=== PATIENT | female | born 1985 ===

== ENCOUNTER 2016-11-13 02:56 | Emergency (ER) | payer SELFPAY ==
[2016-11-13 03:30] VITALS: BP 117/92
[2016-11-13 04:15] LABS: Eosinophils % (Auto) 2.9 % (0.0-4.3); Hematocrit 32.1 % (30.3-42.9); Hemoglobin 9.8 gm/dl (10.1-14.3); Mean Corpuscular HGB Conc 30 % (30-34); Mean Corpuscular Hemoglobin 21 pg (28-32); Mean Corpuscular Volume 68 fl (79-97); Platelet Count 434 K/mm3 (140-440); Red Blood Count 4.72 M/mm3 (3.65-5.03); Red Cell Distribution Width 17.2 % (13.2-15.2); White Blood Count 8.2 K/mm3 (4.5-11.0)
[2016-11-13 04:20] LABS: Anion Gap 17 mmol/L; Blood Urea Nitrogen 12 mg/dL (7-17); Calcium 9.4 mg/dL (8.4-10.2); Carbon Dioxide 23 mmol/L (22-30); Chloride 102.6 mmol/L (98-107); Glucose 101 mg/dL (65-100); Potassium 3.8 mmol/L (3.6-5.0); Sodium 139 mmol/L (137-145)
== END 2016-11-13 03:45 | disposition left against medical advice (07) ==
LOC: ED 02:56
DX: R55 Syncope and collapse (principal); R42 Dizziness and giddiness; D64.9 Anemia, unspecified; Z53.21 Procedure and treatment not carried out due to patient leaving prior to being seen by health care provider
CPT/HCPCS: 36415; 80048; 81025; 84484; 85025; 93005; 93010

== ENCOUNTER 2019-05-22 01:45 | Emergency (ER) | payer OTHER, SELFPAY ==
[2019-05-22 03:57] LABS: Basophils # (Auto) 0.1 K/mm3 (0.0-0.1); Basophils % (Auto) 1.7 % (0.0-1.8); Eosinophils # (Auto) 0.2 K/mm3 (0.0-0.4); Eosinophils % (Auto) 4.3 % (0.0-4.3); Lymphocytes # (Auto) 1.1 K/mm3 (1.2-5.4); Lymphocytes % (Auto) 21.6 % (13.4-35.0); Mean Corpuscular HGB Conc 30 % (30-34); Monocytes # (Auto) 0.4 K/mm3 (0.0-0.8); Platelet Count 623 K/mm3 (140-440); Red Blood Count 4.51 M/mm3 (3.65-5.03); Red Cell Distribution Width 18.8 % (13.2-15.2)
--- NOTE | 2019-05-22 04:01 | Emergency Department Report ---
HPI - General Chief Complaint: Psych Time Seen by Provider: 05/22/19 03:47 - HPI HPI: [facility] The patient is a 34-year-old female presenting with chief complaint of suicidal ideation. The patient states she's been unable to focus on her job after ge tting demoted. The patient states she has multiple social stressors over the past 2 weeks she's felt suicidal intermittently. Today the patient states she was going to buy a knife but when she called [facility] they told her to come to the emergency department. The patient denies any active attempt at harming herself Location: [See above] Duration: [See above] Quality: [See above] Severity: [See above] Timing: [See above] Context: [See above] Modifying factors: [See above] Associated signs and symptoms: [see above] ED Past Medical Hx - Past Medical History Previous Medical History?: Yes Additional medical history: anemia; fibroids - Surgical History Past Surgical History?: Yes Additional Surgical History: cyst and pylops removed from back - Family History Family history: no significant - Social History Smoking Status: Current Every Day Smoker (1/2 pack per day) Substance Use Type: None (denies illicit drug use) ED Review of Systems ROS: Stated complaint: MH EVAL/NERVOUS BREAKDOWN Other details as noted in HPI Constitutional: no symptoms reported Eyes: denies: eye pain ENT: denies: throat pain Respiratory: no symptoms reported Cardiovascular: denies: chest pain Endocrine: no symptoms reported Gastrointestinal: denies: abdominal pain Genitourinary: denies: dysuria Musculoskeletal: denies: back pain Neurological: denies: headache Psychiatric: suicidal thoughts Physical Exam - Physical Exam Vital Signs: Vital Signs 05/22/19 02:12 Temperature 97.9 F Pulse Rate 76 Respiratory 18 Rate Blood Pressure 131/89 [Left] O2 Sat by Pulse 100 Oximetry Physical Exam: GENERAL: The patient is well-developed well-nourished female sitting in chair not appearing to be in acute distress HEENT: Normocephalic. Atraumatic. Extraocular motions are intact. Patient has moist mucous membranes. NECK: Supple. Trachea midline CHEST/LUNGS: Clear to auscultation. There is no respiratory distress noted. HEART/CARDIOVASCULAR: Regular. There is no tachycardia. There is no gallop rub or murmur. ABDOMEN: Abdomen is soft, nontender. Patient has normal bowel sounds. There is no abdominal distention. SKIN: There is no rash. There is no edema. There is no diaphoresis. NEURO: The patient is awake, alert, and oriented. The patient is cooperative. The patient has normal speech MUSCULOSKELETAL:There is no evidence of acute injury. ED Course Vital Signs 05/22/19 02:12 Temperature 97.9 F Pulse Rate 76 Respiratory 18 Rate Blood Pressure 131/89 [Left] O2 Sat by Pulse 100 Oximetry ED Medical Decision Making - Lab Data Result diagrams: 05/22/19 03:34 05/22/19 03:34 Laboratory Tests 05/22/19 05/22/19 05/22/19 03:34 03:34 03:34 WBC RBC Hgb Hct MCV MCH MCHC RDW Plt Count Lymph % (Auto) [place] % (Auto) Eos % (Auto) Baso % (Auto) Lymph # [place] # Eos # Baso # Seg Neutrophils % Seg Neutrophils # Sodium 137 Potassium 3.8 Chloride 100.6 Carbon Dioxide 25 Anion Gap 15 BUN 10 Creatinine 0.6 L Estimated GFR > 60 BUN/Creatinine Ratio 17 Glucose 96 Calcium 9.4 Salicylates < 0.3 L Acetaminophen < 5.0 L Plasma/Serum Alcohol 05/22/19 05/22/19 03:34 03:34 WBC 5.0 RBC 4.51 Hgb 8.6 L Hct 29.3 L MCV 65 L MCH 19 L MCHC 30 RDW 18.8 H Plt Count 623 H Lymph % (Auto) 21.6 [place] % (Auto) 9.0 H Eos % (Auto) 4.3 Baso % (Auto) 1.7 Lymph # 1.1 L [place] # 0.4 Eos # 0.2 Baso # 0.1 Seg Neutrophils % 63.4 Seg Neutrophils # 3.1 Sodium Potassium Chloride Carbon Dioxide Anion Gap BUN Creatinine Estimated GFR BUN/Creatinine Ratio Glucose Calcium Salicylates Acetaminophen Plasma/Serum Alcohol < 0.01 - Differential Diagnosis suicidal ideation Critical care attestation.: If time is entered above; I have spent that time in minutes in the direct care of this critically ill patient, excluding procedure time. ED Disposition Clinical Impression: Suicidal ideation Disposition: DC/TX-65 PSY HOSP/PSY UNIT Is pt being admited?: No Does the pt Need Aspirin: No Condition: Fair Time of Disposition: 04:12 (awaiting placement)
[2019-05-22 04:04] LABS: Hematocrit 29.3 % (30.3-42.9); Hemoglobin 8.6 gm/dl (10.1-14.3); Mean Corpuscular Volume 65 fl (79-97)
[2019-05-22 04:15] LABS: BUN/Creatinine Ratio 17; Blood Urea Nitrogen 10 mg/dL (7-17); Calcium 9.4 mg/dL (8.4-10.2); Hemolysis Index 0
[2019-05-22] MEDS ORDERED: HALOPERIDOL LACTATE 5 MG/1 ML INJ ONE (07:28)
[2019-05-22] MEDS ORDERED: LORazepam 2 MG/ML VIAL IM STA (07:28)
[2019-05-22] MEDS ORDERED: LORazepam 2 MG/ML VIAL ONE (07:28)
[2019-05-22] MEDS ORDERED: HALOPERIDOL LACTATE 5 MG/1 ML INJ IM ONE (07:28)
--- NOTE | 2019-05-22 12:02 | Consultation ---
History of Present Illness - Reason for Consult Consult date: 05/22/19 Reason for consult: Mental Health Evaluation Requesting physician: JOEY DUKES - Chief Complaint Chief complaint: "I need to be let go" - History of Present Psychiatric Illness 34 y.o. AA female who presented to the ER for SI's. Today the patient was irritable during the assessment. She didn't answer most questions asked of her. She was only concerned with getting back to work. Several attempts was made to engage the patient, but was unsuccessful. Medications and Allergies Allergies Allergy/AdvReac Type Severity Reaction Status Date / Time No Known Allergies Allergy Verified 11/13/16 03:31 Home Medications Medication Instructions Recorded Confirmed Last Taken Type DULoxetine [Cymbalta] 1 tab PO DAILY 05/22/19 05/22/19 Unknown History Sertraline [Zoloft] 50 mg PO QDAY 05/22/19 05/22/19 Unknown History lamoTRIgine [LaMICtal] 1 tab PO DAILY 05/22/19 05/22/19 Unknown History Past psychiatric history - Past Medical History Past Medical History: other (Unable to obtain ) Past Surgical History: Other (Unable to obtain ) - past Psychiatric treatment and history psychiatric treatment history: Unable to obtain a psy hx and fam psy hx. - Social History Social history: other (Unable to obtain ) Mental Status Exam - Vital signs Last Vital Signs Temp 97.9 F 05/22/19 02:12 Pulse 76 05/22/19 02:12 Resp 18 05/22/19 05:01 BP 131/89 05/22/19 02:12 Pulse Ox 100 05/22/19 02:12 - Exam Narrative exam: Unable to complete the MSE because the patient refused to cooperate. Results Result Diagrams: 05/22/19 03:34 05/22/19 03:34 Abnormal lab results 05/22/19 05/22/19 05/22/19 Range/Units 03:34 03:34 03:34 Hgb (10.1-14.3) gm/dl Hct (30.3-42.9) % MCV (79-97) fl MCH (28-32) pg RDW (13.2-15.2) % Plt Count (140-440) K/mm3 [place] % (Auto) (0.0-7.3) % Lymph # (1.2-5.4) K/mm3 Creatinine 0.6 L (0.7-1.2) mg/dL Salicylates < 0.3 L (2.8-20.0) mg/dL Acetaminophen < 5.0 L (10.0-30.0) ug/mL 05/22/19 Range/Units 03:34 Hgb 8.6 L (10.1-14.3) gm/dl Hct 29.3 L (30.3-42.9) % MCV 65 L (79-97) fl MCH 19 L (28-32) pg RDW 18.8 H (13.2-15.2) % Plt Count 623 H (140-440) K/mm3 [place] % (Auto) 9.0 H (0.0-7.3) % Lymph # 1.1 L (1.2-5.4) K/mm3 Creatinine (0.7-1.2) mg/dL Salicylates (2.8-20.0) mg/dL Acetaminophen (10.0-30.0) ug/mL All other labs normal. Assessment and Plan Assessment and plan: Impression: Today the patient was irritable during the assessment. UDS/US pending. Recommendation/Plan: Continue 1013 and reassess the patient in 24 hours. Will staff with Dr Marcel Saldaña.
[2019-05-22 16:03] LABS: Bacteria,Urine 1+ /HPF (Negative); Bilirubin,Urine NEG (Negative); Blood,Urine NEG (Negative); Color,Urine Yellow (Yellow); Mucus,Urine FEW /HPF; Urobilinogen,Urine < 2.0 mg/dL (<2.0)
[2019-05-22 16:16] LABS: Amphetamine Screen,Urine PRESUMPTIVE NEGATIVE; Benzodiazepines Screen,Urine PRESUMPTIVE NEGATIVE; Cocaine Screen,Urine PRESUMPTIVE NEGATIVE; Methadone Screen,Urine PRESUMPTIVE NEGATIVE; Opiate Screen,Urine PRESUMPTIVE NEGATIVE
[2019-05-22 16:46] LABS: Cannabinoid Screen,Urine PRESUMPTIVE POSITIVE
--- NOTE | 2019-05-23 10:13 | Progress Note ---
Subjective - Reason for Consult Consult date: 05/23/19 Reason for consult: Psychiatry Follow-up - Chief Complaint Chief complaint: "I had a bad day" 34 y.o. AA female who presented to the ER for SI's. Today the patient was calm and cooperative during the assessment. She stated that she have had a overwhelming past few days since the demotion at her job. She stated that she has a hx of anxiety and is seen at [facility]. She stated that she could not be seen by her psychiatrist so she decided to come to [facility] ER to talk with someone reference her anxiety. She stated that she does not remember everything that occurred in triage, but is adamant that she didn't want to kill herself when asked. Per collateral information from her close friend Martir Campos at [phone], he stated that she does not have a hx of self harm nor have she attempted suicide in the past. He stated that he's the patient support system. He stated that he will pick the patient up once she is ready for discharge. The patient denies SI/HI's and AVH's. Mental Status Exam - Vital signs Last Vital Signs Temp 97.5 F L 05/23/19 07:00 Pulse 100 H 05/23/19 07:00 Resp 18 05/23/19 07:00 BP 145/98 05/23/19 07:00 Pulse Ox 100 05/23/19 07:00 - Exam Narrative exam: MSE: Appearance: calm, cooperative Behavior: regular eye contact Speech: regular rate and tone Mood:: "better" Affect: congruent to mood Thought Process: logical Thought Content: denies SI/HI's and AVH's Motor Activity: ambulatory Cognition: A/O x3 Insight: appropriate Judgment: appropriate Assessment and Plan Impression: Acute Stress D. Cannabis Use DO. Hx of Unspecified Anxiety DO. Today the patient was calm and cooperative during the assessment. The patient is no threat to self. DDx: Mood DO Recommendation/Plan: Rescind 1013. Discussed generalized coping skills with the patient, she verbalized understanding. Dispo: The patient can follow up with [facility]. Staffed with Dr Marcel Saldaña.
[2019-05-23 10:30] VITALS: BP 130/89
== END 2019-05-23 11:00 | disposition home or self-care (01) ==
LOC: ED 01:45
DX: F32.9 Major depressive disorder, single episode, unspecified (principal); F41.9 Anxiety disorder, unspecified; F17.200 Nicotine dependence, unspecified, uncomplicated
CPT/HCPCS: 36415; 80048; 80307; 81001; 85025; 96372; 99284; J1630; J2060; 80320; G0480

== ENCOUNTER 2019-07-11 18:18 | Emergency (ER) | payer OTHER ==
[2019-07-11] MEDS ORDERED: SODIUM CHLORIDE 0.9% 1000 ML 1,000 ML IV ONE (19:04)
[2019-07-11 19:23] LABS: Hematocrit 30.1 % (30.3-42.9); Hemoglobin 9.6 gm/dl (10.1-14.3); Mean Corpuscular HGB Conc 32 % (30-34); Platelet Count 584 K/mm3 (140-440); Red Blood Count 4.38 M/mm3 (3.65-5.03)
--- NOTE | 2019-07-11 19:24 | Emergency Department Report ---
ED Dizziness HPI - General Chief Complaint: Dizziness Stated Complaint: DIZZY/HEARTBEAT RACING Time Seen by Provider: 07/11/19 18:56 Source: patient Mode of arrival: Ambulatory Limitations: No Limitations - History of Present Illness Initial Comments: Patient is a 34-year-old -[place] male who states she has been under some stress lately but also has a history of fibroids and heavy menses was presented with palpated patient's an increased heart rate for the last 2 days. Patient states she has some dizziness especially with standing and as well as a headache. The patient denies chest pain shortness of breath fevers chills, cold or congestion at this time. Patient states she has had a decreased appetite for the past 3-4 days. - Related Data Home Medications Medication Instructions Recorded Confirmed Last Taken DULoxetine [Cymbalta] 1 tab PO DAILY 05/22/19 05/22/19 Unknown Sertraline [Zoloft] 50 mg PO QDAY 05/22/19 05/22/19 Unknown lamoTRIgine [LaMICtal] 1 tab PO DAILY 05/22/19 05/22/19 Unknown Allergies Allergy/AdvReac Type Severity Reaction Status Date / Time No Known Allergies Allergy Verified 11/13/16 03:31 ED Review of Systems ROS: Stated complaint: DIZZY/HEARTBEAT RACING Other details as noted in HPI Comment: All other systems reviewed and negative ED Past Medical Hx - Past Medical History Additional medical history: anemia; fibroids - Surgical History Additional Surgical History: cyst and pylops removed from back - Social History Smoking Status: Current Every Day Smoker Substance Use Type: None - Medications Home Medications: Home Medications Medication Instructions Recorded Confirmed Last Taken Type DULoxetine [Cymbalta] 1 tab PO DAILY 05/22/19 05/22/19 Unknown History Sertraline [Zoloft] 50 mg PO QDAY 05/22/19 05/22/19 Unknown History lamoTRIgine [LaMICtal] 1 tab PO DAILY 05/22/19 05/22/19 Unknown History ED Physical Exam - General Limitations: No Limitations General appearance: alert, in no apparent distress - Head Head exam: Present: atraumatic, normocephalic - Eye Eye exam: Present: normal appearance, PERRL, EOMI - ENT ENT exam: Present: mucous membranes moist - Neck Neck exam: Present: normal inspection - Respiratory Respiratory exam: Present: normal lung sounds bilaterally. Absent: respiratory distress, wheezes, rales, rhonchi - Cardiovascular Cardiovascular Exam: Present: normal rhythm, tachycardia, normal heart sounds. Absent: systolic murmur, diastolic murmur, rubs, gallop - GI/Abdominal GI/Abdominal exam: Present: soft, normal bowel sounds. Absent: distended, tenderness, guarding, rebound - Extremities Exam Extremities exam: Present: normal inspection - Back Exam Back exam: Present: normal inspection - Neurological Exam Neurological exam: Present: alert, oriented X3 - Psychiatric Psychiatric exam: Present: normal affect, normal mood - Skin Skin exam: Present: warm, dry, intact, normal color. Absent: rash ED Course Vital Signs 07/11/19 19:30 Pulse Rate [ 86 Lying] Pulse Rate [ 90 Sitting] Pulse Rate [ 93 H Standing] Blood Pressure 130/91 [Lying] Blood Pressure 127/84 [Sitting] Blood Pressure 118/75 [Standing] ED Medical Decision Making - Lab Data Result diagrams: 07/11/19 19:12 07/11/19 19:12 Lab Results 07/11/19 07/11/19 07/11/19 Range/Units 19:12 19:12 19:12 WBC 7.8 (4.5-11.0) K/mm3 RBC 4.38 (3.65-5.03) M/mm3 Hgb 9.6 L (10.1-14.3) gm/dl Hct 30.1 L (30.3-42.9) % MCV 69 L (79-97) fl MCH 22 L (28-32) pg MCHC 32 (30-34) % RDW 27.1 H (13.2-15.2) % Plt Count 584 H (140-440) K/mm3 Add Manual Diff Complete Total Counted 100 Seg Neuts % (Manual) 71.0 H (40.0-70.0) % Band Neutrophils % 0 % Lymphocytes % (Manual) 20.0 (13.4-35.0) % Reactive Lymphs % (Man) 0 % Monocytes % (Manual) 7.0 (0.0-7.3) % Eosinophils % (Manual) 2.0 (0.0-4.3) % Basophils % (Manual) 0 (0.0-1.8) % Metamyelocytes % 0 % Myelocytes % 0 % Promyelocytes % 0 % Blast Cells % 0 % Nucleated RBC % Not Reportable Seg Neutrophils # Man 5.5 (1.8-7.7) K/mm3 Band Neutrophils # 0.0 K/mm3 Lymphocytes # (Manual) 1.6 (1.2-5.4) K/mm3 Abs React Lymphs (Man) 0.0 K/mm3 Monocytes # (Manual) 0.5 (0.0-0.8) K/mm3 Eosinophils # (Manual) 0.2 (0.0-0.4) K/mm3 Basophils # (Manual) 0.0 (0.0-0.1) K/mm3 Metamyelocytes # 0.0 K/mm3 Myelocytes # 0.0 K/mm3 Promyelocytes # 0.0 K/mm3 Blast Cells # 0.0 K/mm3 WBC Morphology Not Reportable Hypersegmented Neuts Not Reportable Hyposegmented Neuts Not Reportable Hypogranular Neuts Not Reportable Smudge Cells Not Reportable Toxic Granulation Not Reportable Toxic Vacuolation Not Reportable Dohle Bodies Not Reportable Pelger-Huet Anomaly Not Reportable Miguel Rods Not Reportable Platelet Estimate Appears increased Clumped Platelets Not Reportable Plt Clumps, EDTA Not Reportable Large Platelets 1+ Giant Platelets Not Reportable Platelet Satelliting Not Reportable Plt Morphology Comment Not Reportable RBC Morphology Not Reportable Dimorphic RBCs Not Reportable Polychromasia Not Reportable Hypochromasia 2+ Poikilocytosis 1+ Anisocytosis Not Reportable Microcytosis 2+ Macrocytosis Not Reportable Spherocytes Not Reportable Pappenheimer Bodies Not Reportable Sickle Cells Not Reportable Target Cells Not Reportable Tear Drop Cells Not Reportable Ovalocytes Not Reportable Helmet Cells Not Reportable Lo[place] Bodies Not Reportable [place] Rings Not Reportable Camryn Cells Not Reportable Bite Cells Not Reportable Crenated Cell Not Reportable Elliptocytes Not Reportable Acanthocytes (Spur) Not Reportable Rouleaux Not Reportable Hemoglobin C Crystals Not Reportable Schistocytes Not Reportable Malaria parasites Not Reportable Jalen Bodies Not Reportable Hem Pathologist Commnt No Sodium 139 (137-145) mmol/L Potassium 4.2 (3.6-5.0) mmol/L Chloride 103.0 (98-107) mmol/L Carbon Dioxide 23 (22-30) mmol/L Anion Gap 17 mmol/L BUN 12 (7-17) mg/dL Creatinine 0.7 (0.7-1.2) mg/dL Estimated GFR > 60 ml/min BUN/Creatinine Ratio 17 % Glucose 95 (65-100) mg/dL Calcium 9.4 (8.4-10.2) mg/dL HCG, Qual Negative (Negative) - EKG Data -: EKG Interpreted by Me EKG shows normal: sinus rhythm, axis, intervals, QRS complexes, ST-T waves Rate: normal - EKG Data Interpretation: normal EKG - Medical Decision Making Patient is 34-year-old black female who is presenting with some dizziness palpitations increased heart rate. Patient has some very mild tachycardia on arrival. EKG actually shows that the patient's heart rate normalized after IV fluids. Patient did have borderline orthostatics. Patient has some mild anemia however the patient states she's been much lower with her hemoglobin passed and is undergoing iron therapy. The patient is feeling much improved after normal saline and be discharged home. - Differential Diagnosis dehydration anemia arrhythmia acute renal inj and stress reaction Critical care attestation.: If time is entered above; I have spent that time in minutes in the direct care of this critically ill patient, excluding procedure time. ED Disposition Clinical Impression: Orthostatic dizziness Disposition: DC-01 TO HOME OR SELFCARE Is pt being admited?: No Does the pt Need Aspirin: No Condition: Stable Instructions: Dehydration (ED) Referrals: TD LEDEZMA MD [Primary Care Provider] - 3-5 Days Forms: AMA Form Time of Disposition: 21:34
[2019-07-11 19:33] VITALS: BP 130/91
[2019-07-11 19:39] LABS: BUN/Creatinine Ratio 17; Blood Urea Nitrogen 12 mg/dL (7-17); Calcium 9.4 mg/dL (8.4-10.2); Hemolysis Index 7
[2019-07-11 19:55] LABS: Mean Corpuscular Volume 69 fl (79-97); Red Cell Distribution Width 27.1 % (13.2-15.2)
[2019-07-11] MEDS ORDERED: IBUPROFEN 400 MG TAB PO ONE (20:05)
[2019-07-11 20:54] LABS: Basophils % (Manual) 0 % (0.0-1.8); Hypochromasia 2+; Large Platelets 1+; Poikilocytosis 1+; Total Cells Counted 100
[2019-07-11 20:55] LABS: Platelet Estimate Appears Increased
[2019-07-11 21:58] LABS: Bilirubin,Urine NEG (Negative); Blood,Urine SM (Negative); Color,Urine Yellow (Yellow); Mucus,Urine FEW /HPF; Protein,Urine <15 mg/dL mg/dL (Negative); Urobilinogen,Urine < 2.0 mg/dL (<2.0); WBC,Urine < 1.0 /HPF (0.0-6.0)
== END 2019-07-11 21:50 | disposition home or self-care (01) ==
LOC: ED 18:18
DX: R42 Dizziness and giddiness (principal); D64.9 Anemia, unspecified; F17.200 Nicotine dependence, unspecified, uncomplicated; Z98.890 Other specified postprocedural states; Z79.899 Other long term (current) drug therapy
CPT/HCPCS: 36415; 80048; 81001; 84703; 85007; 85025; 93005; 93010; 96360; 96361; 99283; J7030